=== PATIENT | male | born 1970 | race Caucasian/White ===

== ENCOUNTER 2016-11-02 22:35 | Emergency (ER) | payer MEDICAID ==
[2016-11-02 22:44] VITALS: BMI 25.7
[2016-11-02 22:51] VITALS: TEMP 98.6
--- NOTE | 2016-11-02 23:09 | ED PDOC ---
Arrival/HPI - General Chief Complaint: Lower Extremity Problem/Injury Time Seen by Provider: 11/02/16 23:03 Historian: Patient - History of Present Illness Narrative History of Present Illness (Text): 11/02/16 23:10 A 46 year old male, whose past medical history includes diabetes, presents to the emergency department complaining of left leg muscle pain. Patient reports pain with running. Notes he applied creams and ice with no relief. Patient went to PMD yesterday who stated it is related to muscle, but if notes swelling, patient should report to the emergency department. Denies any trauma, chest pain , shortness of breath or any other complaints at this time. PMD: Dr. Chao Symptom Onset: Sudden Symptom Course: Unchanged Context: Home Associated Symptoms (Text): none Past Medical History - Provider Review Nursing Documentation Reviewed: Yes - Cardiac Hx Hypertension: Yes - Pulmonary Hx Respiratory Disorders: No - Neurological Hx Neurological Disorder: No - HEENT Hx HEENT Disorder: No - Renal Hx Renal Disorder: No - Endocrine/Metabolic Hx Diabetes Mellitus Type 2: Yes - Hematological/Oncological Hx Blood Disorders: No - Integumentary Hx Dermatological Disorder: No - Musculoskeletal/Rheumatological Hx Musculoskeletal Disorders: No - Gastrointestinal Hx Gastrointestinal Disorders: No - Genitourinary/Gynecological Hx Genitourinary Disorders: No - Psychiatric Hx Psychophysiologic Disorder: No Hx Substance Use: No - Anesthesia Hx Anesthesia: No Family/Social History - Physician Review Nursing Documentation Reviewed: Yes Family/Social History: No Known Family HX Smoking Status: Former Smoker Hx Alcohol Use: No Hx Substance Use: No Allergies/Home Meds Allergies/Adverse Reactions: Allergies No Known Allergies Allergy (Verified 11/02/16 22:44) Home Medications: Home Meds Medication Instructions Recorded Confirmed Aspirin [Aspirin Chewable] 81 mg PO DAILY 11/02/16 11/02/16 GlipiZIDE [Glucotrol] 10 mg PO BID 11/02/16 11/02/16 Lisinopril [Zestril] 10 mg PO DAILY 11/02/16 11/02/16 Sitagliptin Phos/Metformin HCl 1 tab PO BID 11/02/16 11/02/16 [Janumet 50-1,000 mg Tablet] Review of Systems - Physician Review All systems were reviewed & negative as marked: Yes - Review of Systems Respiratory: absent: SOB Cardiovascular: absent: Chest Pain Physical Exam - Physical Exam Narrative Physical Exam (Text): 11/02/16 23:07 Constitutional: No acute distress. Head: Normocephalic. Atraumatic. Eyes: PERRL. ENT: Moist mucous membranes. Neck: Supple. Cardiovascular: Regular rate. Chest: No tenderness. Respiratory: Clear to auscultation bilaterally. GI: Soft. Nontender. Nondistended. Back: No CVA tenderness. Musculoskeletal: No tenderness or swelling of extremities. Full ROM. dp pulse 2 + Skin: No rash. Neurologic: Alert, no focal deficit. Vital Signs Reviewed: Yes Vital Signs Temp Pulse Resp BP Pulse Ox 11/02/16 22:49 98.6 F 80 15 144/86 98 Temperature: Afebrile Blood Pressure: Normal Pulse: Regular Respiratory Rate: Normal Appearance: Positive for: Well-Appearing, Non-Toxic, Comfortable Pain Distress: None Mental Status: Positive for: Alert and Oriented X 3 Medical Decision Making ED Course and Treatment: 11/02/16 23:06 Impression: A 46 year old male with right leg pain. Differential Diagnosis included but are not limited to: r/o DVT Plan: -- US lower extremity -- Reassess and disposition Progress Notes: 11/03/16 00:20 Ultrasound of lower extremity: Negative for DVT. 11/03/16 00:24 I have discussed the results and plan with the patient, who expresses understanding. Patient in agreement with plan to be discharged home. Patient is stable for discharge. Patient was instructed to follow up with physician or return if symptoms worsen or new concerning symptoms arise. - RAD Interpretation Radiology Orders: 11/02/16 23:03 DUPLEX LOWER EXTRM VEIN LEFT [US] Stat - Scribe Statement The provider has reviewed the documentation as recorded by the Umberto Chapman Provider Scribe Attestation: All medical record entries made by the Scribumer were at my direction and personally dictated by me. I have reviewed the chart and agree that the record accurately reflects my personal performance of the history, physical exam, medical decision making, and the department course for this patient. I have also personally directed, reviewed, and agree with the discharge instructions and disposition. Disposition/Present on Arrival - Present on Arrival Any Indicators Present on Arrival: No History of DVT/PE: No History of Uncontrolled Diabetes: No Urinary Catheter: No History of Decub. Ulcer: No History Surgical Site Infection Following: None - Disposition Have Diagnosis and Disposition been Completed?: Yes Diagnosis: Leg pain Disposition: HOME/ ROUTINE Disposition Time: 00:25 Patient Plan: Discharge Patient Problems: Current Active Problems Problem Status Onset Leg pain Acute Condition: STABLE Discharge Instructions (ExitCare): Muscle Cramp (ED) Additional Instructions: Your doppler showed no clot in your leg. Referrals: Yanick Estes MD [Family Provider] - Follow up with primary
[2016-11-03 00:46] VITALS: BP 137/72; PULSE 71; RESP 16; O2SAT 99
--- NOTE | 2016-11-03 13:03 | US ---
PROCEDURE: Left lower extremity venous US HISTORY: Leg pain and swelling. Evaluate for DVT. PHYSICIAN(S): Mathieu Reed MD. TECHNIQUE: Duplex sonography and color-flow Doppler with graded compression were used to evaluate the deep venous system of the left lower extremity. FINDINGS: The visualized deep venous system of the left lower extremity is sonographically normal and compressible. Normal wave forms and augmentation are seen. There is no sonographic evidence for deep venous thrombosis in the visualized segments of the left lower extremity. IMPRESSION: 1. No sonographic evidence for deep venous thrombosis in the visualized segments of the left lower extremity.
== END 2016-11-03 00:46 | disposition home or self-care (01) ==
LOC: ED 22:35
DX: M79.604 Pain in right leg (principal)